=== PATIENT | female | born 1980 | race Caucasian/White ===

== ENCOUNTER → 2017-02-24 | Outpatient (CLI) | payer BC ==
[~2017-02-24] MED LIST: ACET500C12 PO; BIMA0.01 OPB; BRIM0.1S OPB; DORZ1SOL6 OPB; DOXY100C PO; INSPMPNVLG; MAGN400T6 PO; MELA1TAB5 PO; OMEG10007 PO; OXYC-57 PO; POLY335019 PO; [UNRECOGNIZED DRUG - OTHER] PO
[2017-02-24 19:54] LABS: ALT/SGPT 18 U/L (12-78); AST/SGOT 15 U/L (15-37); BLOOD UREA NITROGEN 12 mg/dl (7-18); BUN/CREATININE RATIO 13.8 (10-20); CALCIUM 8.6 mg/dl (8.5-10.1); CARBON DIOXIDE 28 mmol/L (21-32); CHLORIDE 104 mmol/L (98-107); CREATININE 0.87 mg/dl (0.60-1.20); GLUCOSE 136 mg/dl (70-99); POTASSIUM 3.6 mmol/L (3.5-5.1); SODIUM 139 mmol/L (136-145)
[2017-02-24 20:03] LABS: ALB/GLOB RATIO 1.1 (0.9-2); ALKALINE PHOSPHATASE 45 U/L (45-117); CHOLESTEROL 164 mg/dl (0-200); CHOLESTEROL/HDL RATIO 2.6; HDL CHOLESTEROL 63 mg/dl; LDL CHOLESTEROL CALCULATED 93 mg/dl; TRIGLYCERIDES 38 mg/dl (0-150); VERY LOW DENSITY LIPOPROT CALC 8 mg/dl
[2017-02-25 06:44] LABS: ESTIMATED AVERAGE GLUCOSE 177 mg/dl; HA1C FLAG Normal (Normal)
== END ==
LOC: C.LABPVFM 15:11
PROVIDERS: ATTEND Physician Assistant
DX: E10.9 Type 1 diabetes mellitus without complications (principal)

== ENCOUNTER 2017-06-23 00:46 | Emergency (ER) | payer BC ==
[~2017-06-23] VITALS: Ht 172.7 cm; Wt 78.2 kg
[~2017-06-23 00:46] MED LIST changes: -ACET500C12 PO; -BIMA0.01 OPB; -BRIM0.1S OPB; -DOXY100C PO; -MAGN400T6 PO; -OXYC-57 PO
[2017-06-23 00:50] VITALS: TEMP 36.7; Ht 172.7 cm; Wt 78.2 kg
[2017-06-23] MEDS ORDERED: SODIUM CHLORIDE 0.9% 1000ML 1,000 ML IV ONE (01:15)
[2017-06-23 01:43] LABS: HEMATOCRIT 31.1 % (37-47); MEAN CELL VOLUME 71.2 fL (80-100); MEAN CORPUSCULAR HEMOGLOBIN 22.4 pg (25-34); MEAN CORPUSCULAR HGB CONC 31.5 g/dl (32-36); MEAN PLATELET VOLUME 11.3 fL (7.4-10.4); PLATELET COUNT 182 K/uL (130-400); RED BLOOD COUNT 4.37 M/uL (4.2-5.4); URINE APPEARANCE CLEAR (CLEAR); URINE BILIRUBIN NEG (NEG); URINE COLOR YELLOW; URINE NITRITE NEG (NEG); URINE PH 6.5 (4.5-7.5); UROBILINOGEN NEG (NEG); ZZUR CULT IF INDIC CLEAN CATCH NO
[2017-06-23 01:46] LABS: MANUAL MICROSCOPIC REQUIRED? NO; REVIEW REQ? NO
[2017-06-23] MEDS ORDERED: BIMA0.01 OPB (01:47)
[2017-06-23] MEDS ORDERED: MAGN400T6 PO (01:47)
[2017-06-23] MEDS ORDERED: BRIM0.1S OPB (01:47)
[2017-06-23] MEDS ORDERED: ACET500C12 PO (01:47)
[2017-06-23 01:52] LABS: INR 0.9 (0.9-1.1); PROTHROMBIN TIME (PATIENT) 10.1 SECONDS (9.0-12.0)
[2017-06-23 02:02] LABS: ALT/SGPT 16 U/L (12-78); AST/SGOT 12 U/L (15-37); BLOOD UREA NITROGEN 21 mg/dl (7-18); BUN/CREATININE RATIO 20.7 (10-20); CALCIUM 8.1 mg/dl (8.5-10.1); CARBON DIOXIDE 20 mmol/L (21-32); CHLORIDE 110 mmol/L (98-107); GLUCOSE 322 mg/dl (70-99); POTASSIUM 3.4 mmol/L (3.5-5.1); SODIUM 137 mmol/L (136-145); URIC ACID 2.3 mg/dl (2.6-7.2)
[2017-06-23 02:04] LABS: BENZODIAZEPINE, URINE NEG (NEG); COCAINE,URINE NEG (NEG); PHENCYCLIDINE, URINE NEG (NEG)
[2017-06-23 02:05] LABS: C-REACTIVE PROTEIN < 0.29 mg/dl (0-0.29)
[2017-06-23 02:12] LABS: ALKALINE PHOSPHATASE 55 U/L (45-117); BETA-HYDROXYBUTYRATE 1.02 mg/dL (0.2-2.81)
[2017-06-23 02:29] LABS: LYME DISEASE AB IGG NEG (NEG)
[2017-06-23 02:56] LABS: BASO % 0.5 %; BASO ABS # 0.04 K/uL (0-0.2); COMPLETE YES; ECHINOCYTES 1+; EOS % 1.8 %; IG% 0.1 %; LYMPH % 15.1 %; LYMPH ABS # 1.27 K/uL (1.2-3.4); MONO % 7.4 %; NEUT % 75.1 %; TEAR DROP CELLS 1+
[2017-06-23 03:05] LABS: LYME DISEASE AB IGM EQUIVOCAL (NEG)
[2017-06-23] MEDS ORDERED: CEFTRIAXONE SOD INJ 1 GM ADDVIAL IV STA (03:22)
[2017-06-23] MEDS ORDERED: DOXY100C PO (03:40)
[2017-06-23] MEDS ORDERED: NORCO 5/325MG HOME PACK PO ONE (03:45)
[2017-06-23 04:22] VITALS: BP 108/63; PULSE 65; O2SAT 99
--- NOTE | 2017-06-23 22:20 | EMERGENCY ROOM VISIT NOTE ---
History First contact with patient: 00:53 Chief Complaint: PAIN (GENERALIZED) Stated Complaint: PAIN History of Present Illness The patient is a 37 year old female who presents to the Emergency Room with complaints of vague pains worsening over the past one day. The patient states that she is having bilateral elbow pain, right knee and right great toe pain. The patient does not recall injury or trauma. She does not have a recent fall or known injury. The patient is a usually well-controlled diabetic, but states that her sugars have been elevated over the past few days. She has not had fever or chills. No chest pain, chest tightness, shortness of breath, abdominal pain, rash, or changes in using the bathroom. She did attempt 800 mg ibuprofen at home with only minimal improvement of symptoms. She has not had symptoms like this in the past. She does not have numbness or paresthesias. She rates the discomfort a 6/10. Review of Systems More than 10 systems were reviewed and otherwise negative with the exception of history of present illness. Past Medical/Surgical History No chronic medical disease Family History No pertinent family history Social History Smoking Status: Never Smoker Current/Historical Medications Scheduled Acetazolamide (Acetazolamide Er), 500 MG PO BID Bimatoprost (Lumigan), 1 DROPS OPB DAILY Brimonidine Tartrate (Alphagan P Oph), 1 DROP OPB TID Dorzolamide Hcl-Timolol Maleat (Cosopt Oph), 1 DROPS OPB BID Doxycycline Hyclate (Vibramycin), 100 MG PO BID Fish Oil ([place]-3), 1 CAP PO DAILY Insulin Aspart (novoLOG INSULIN PUMP ), 1 EA N/A UD Magnesium Oxide (Mag-Ox), 400 MG PO HS Melatonin (Kp Melatonin), 1 TAB PO HS Polyethylene Glycol 3350 (Miralax), 17 GM PO DAILY Physical Exam Vital Signs Date Time Temp Pulse Resp B/P (MAP) Pulse Ox O2 Delivery O2 Flow Rate FiO2 06/23/17 04:22 65 18 108/63 99 06/23/17 02:27 79 17 104/46 99 Room Air 06/23/17 01:34 72 06/23/17 00:50 36.7 79 16 133/75 99 Room Air Pain Rating (0-10): 8.0 Physical Exam VITALS: Vitals are noted on the nurse's note and reviewed by myself. Vital signs stable. GENERAL: Well-developed, well-nourished, white female, who is in no acute distress and resting comfortably. Patient is cooperative with the examination. NECK: Supple without nuchal rigidity. No lymphadenopathy. No thyromegaly. Cervical spine is nontender. HEART: Regular rate and rhythm without murmurs gallops or rubs. LUNGS: Clear to auscultation bilaterally without wheezes, rales or rhonchi. No retractions or accessory muscle use. ABDOMEN: Positive normal bowel sounds x 4. Soft, nontender, without masses or organomegaly. No guarding or rebound tenderness. MUSCULOSKELETAL: No muscle atrophy, erythema, or edema noted. Full range of motion without joint tenderness in all extremities. No tenderness to palpation. Normal gait. Strength 5/5 throughout. NEURO: Patient was alert and oriented to person place and time. CN II through XII grossly intact. Deep tendon reflexes 2+ throughout. No focal neurological deficits SKIN: The skin was without rashes, erythema, edema, or bruising. Capillary reflex less than 2 seconds. Medical Decision & Procedures Laboratory Results 06/23/17 01:25 Red Blood Count 4.37, Mean Corpuscular Volume 71.2, Mean Corpuscular Hemoglobin 22.4, Mean Corpuscular Hemoglobin Concent 31.5, Mean Platelet Volume 11.3, Neutrophils (%) (Auto) 75.1, Lymphocytes (%) (Auto) 15.1, Monocytes (%) (Auto) 7.4, Eosinophils (%) (Auto) 1.8, Basophils (%) (Auto) 0.5, Neutrophils # (Auto) 6.31, Lymphocytes # (Auto) 1.27, Monocytes # (Auto) 0.62, Eosinophils # (Auto) 0.15, Basophils # (Auto) 0.04 06/23/17 01:25 Test 06/23/17 01:07 06/23/17 01:25 Urine Test NEG (NEG) White Blood Count 8.40 K/uL (4.8-10.8) Red Blood Count 4.37 M/uL (4.2-5.4) Hemoglobin 9.8 g/dL (12.0-16.0) Hematocrit 31.1 % (37-47) Mean Corpuscular Volume 71.2 fL (80-100) Mean Corpuscular Hemoglobin 22.4 pg (25-34) Mean Corpuscular Hemoglobin Concent 31.5 g/dl (32-36) Platelet Count 182 K/uL (130-400) Mean Platelet Volume 11.3 fL (7.4-10.4) Neutrophils (%) (Auto) 75.1 % Lymphocytes (%) (Auto) 15.1 % Monocytes (%) (Auto) 7.4 % Eosinophils (%) (Auto) 1.8 % Basophils (%) (Auto) 0.5 % Neutrophils # (Auto) 6.31 K/uL (1.4-6.5) Lymphocytes # (Auto) 1.27 K/uL (1.2-3.4) Monocytes # (Auto) 0.62 K/uL (0.11-0.59) Eosinophils # (Auto) 0.15 K/uL (0-0.5) Basophils # (Auto) 0.04 K/uL (0-0.2) RDW Standard Deviation 42.9 fL (36.4-46.3) RDW Coefficient of Variation 16.7 % (11.5-14.5) Immature Granulocyte % (Auto) 0.1 % Immature Granulocyte # (Auto) 0.01 K/uL (0.00-0.02) Tear Drop Cells 1+ Echinocytes 1+ Erythrocyte Sedimentation Rate 19 mm/hr (0-21) Prothrombin Time 10.1 SECONDS (9.0-12.0) Prothromb Time International Ratio 0.9 (0.9-1.1) Activated Partial Thromboplast Time 26.3 SECONDS (21.0-31.0) Partial Thromboplastin Ratio 1.0 Urine Color YELLOW Urine Appearance CLEAR (CLEAR) Urine pH 6.5 (4.5-7.5) Urine Specific [place] 1.020 (1.000-1.030) Urine Protein NEG (NEG) Urine Glucose (UA) 2+ (NEG) Urine Ketones NEG (NEG) Urine Occult Blood NEG (NEG) Urine Nitrite NEG (NEG) Urine Bilirubin NEG (NEG) Urine Urobilinogen NEG (NEG) Urine Leukocyte Esterase NEG (NEG) Anion Gap 7.0 mmol/L (3-11) Est Creatinine Clear Calc Drug Dose 83.0 ml/min Estimated GFR () 82.2 Estimated GFR (Non- 70.9 BUN/Creatinine Ratio 20.7 (10-20) Uric Acid 2.3 mg/dl (2.6-7.2) Calcium Level 8.1 mg/dl (8.5-10.1) Magnesium Level 2.0 mg/dl (1.8-2.4) Total Bilirubin 0.2 mg/dl (0.2-1) Aspartate Amino Transf (AST/SGOT) 12 U/L (15-37) Alanine Aminotransferase (ALT/SGPT) 16 U/L (12-78) Alkaline Phosphatase 55 U/L (45-117) C-Reactive Protein < 0.29 mg/dl (0-0.29) Total Protein 7.1 gm/dl (6.4-8.2) Albumin 3.5 gm/dl (3.4-5.0) Globulin 3.6 gm/dl (2.5-4.0) Albumin/Globulin Ratio 1.0 (0.9-2) Lipase 173 U/L (73-393) Beta-Hydroxybutyric Acid 1.02 mg/dL (0.2-2.81) Thyroid Stimulating Hormone (TSH) 7.020 uIu/ml (0.300-4.500) Urine Opiates Screen NEG (NEG) Urine Methadone, Qualitative NEG (NEG) Urine Barbiturates NEG (NEG) Urine Phencyclidine (PCP) Level NEG (NEG) Ur Amphetamine/Methamphetamine NEG (NEG) MDMA (Ecstasy) Screen NEG (NEG) Urine Benzodiazepines Screen NEG (NEG) Urine Cocaine Metabolite NEG (NEG) Urine Marijuana (THC) NEG (NEG) Lyme Disease IgG Antibody NEG (NEG) Medications Administered Medications (Trade) Dose Ordered Sig/Ro Route Start Time Stop Time Status Last Admin Dose Admin Sodium Chloride 1,000 ml @ 999 mls/hr Q1H1M ONCE IV 06/23/17 01:15 06/23/17 02:15 DC 06/23/17 01:32 999 MLS/HR Ceftriaxone Sodium (Rocephin Inj) 1 gm NOW STAT IV 06/23/17 03:22 06/23/17 03:23 DC 06/23/17 03:43 1 GM Acetaminophen/ Hydrocodone Bitart ([place] 5/325mg Home Pack) 1 homepack UD ONCE PO 06/23/17 03:45 06/23/17 03:46 DC 06/23/17 04:21 1 HOMEPACK ED Course Physical exam and history were performed. Nursing notes, EMR, and Medication List were personally reviewed. Patient appears to have vague pains throughout her bilateral arms and right lower leg. On examination she does not have signs of infection, rash, or any appreciable weakness. She certainly is without numbness or paresthesias. She is diabetic, and states her sugars have been running high. Overall the patient appears well and is certainly nontoxic. She is reasonable and does not usually come to the emergency department. IV access was established and labs were obtained. The patient was hydrated with normal saline. The patient's blood work is as above and was reviewed. She does not have a significantly elevated white blood cell count or bandemia. She is anemic at 9.8. TSH is slightly elevated at 7. Her Lyme IgM is positive with Western blot pending. Her sugar is elevated but her ketones are normal. I discussed options of care with the patient. Her symptoms are most likely felt to be related to the Lyme disease as this is positive and could reasonably cause her symptoms. She does not seem to have obvious symptoms of Guillain-Perez , infection, or obvious diabetic neuropathy. The patient will be given Rocephin here in the department and a continuation course of doxycycline. I did recommend that she have close follow-up with her primary care physician. 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 The anemia could be iron deficient related, and I did recommend that she follow with this through her PCPs office as well. The patient was asked to monitor for worsening symptoms over the next year with any new, worsening, or concerning symptoms. The chart was completed utilizing [employer] Speech Voice Recognition Software. Grammatical errors, random word insertions, pronoun errors, and incomplete sentences are an occasional consequence of this system due to software limitations, ambient noise, and hardware issues. Any formal questions or concerns about the content, text, or information contained within the body of this dictation should be directly addressed to the provider for clarification. . Medical Decision Differential diagnosis includes, but is not limited to: Sprain, strain, fracture , dislocation, subluxation, contusion, neuropathy, infection, systemic inflammatory process, Lyme disease, and others Impression Primary Impression: Positive Lyme disease serology Additional Impression: Arthralgia Departure Information Dispostion Home / Self-Care Condition GOOD Prescriptions Doxycycline Hyclate (VIBRAMYCIN) 100 Mg Cap 100 MG PO BID for 21 Days, #42 CAP Prov: Dav Horowitz PA-C 06/23/17 Forms WORK / SCHOOL INSTRUCTIONS, HOME CARE DOCUMENTATION FORM, IMPORTANT VISIT INFORMATION Patient Instructions My [facility] Additional Instructions You were seen and evaluated today on an emergency basis only. This is not a substitute for, or an effort to provide, complete comprehensive medical care. It is not possible to recognize and treat all injuries or illnesses in a single emergency department visit. For this reason it is recommended that you followup with your primary care physician next week for ongoing care and evaluation. Call in the morning to make her appointment. For baseline pain relief you may alternate ibuprofen and acetaminophen every 4 hours for pain control. Take 600 mg ibuprofen (Advil) and then 4 hours later take 1000 mg acetaminophen (Tylenol). Do not take more than 3000 mg acetaminophen in a single day. [place] (hydrocodone/acetaminophen) 5/325 mg (homepack) every 6 hours as needed for worsening breakthrough pain. Do not drink or drive on [place]. This medication will likely make you tired. Do not take [place] and Tylenol at the same time as both contain acetaminophen. [place] may cause constipation. You may wish to take an [id number] stool softener like Colace if this occurs. Doxycycline twice a day for 21 days. Avoid exposure to the sun/UV light while on this medication or use frequent application of SPF 50 or higher due to increased sensitivity to UV rays and high risk for severe cooney. TAKE WITH FOOD You are welcome to return to the emergency department anytime with new, worsening, or concerning symptoms. Problem Qualifiers
[2017-06-29 01:40] LABS: 18KDIGG BAND NONREACTIVE (NONREACTIVE); 23KDIGG BAND REACTIVE (NONREACTIVE); 23KDIGM BAND REACTIVE (NONREACTIVE); 28KDIGG BAND NONREACTIVE (NONREACTIVE); 30KDIGG BAND NONREACTIVE (NONREACTIVE); 39KDIGG BAND NONREACTIVE (NONREACTIVE); 39KDIGM BAND REACTIVE (NONREACTIVE); 41KDIGG BAND NONREACTIVE (NONREACTIVE); 41KDIGM BAND REACTIVE (NONREACTIVE); 45KDIGG BAND NONREACTIVE (NONREACTIVE); 58KDIGG BAND NONREACTIVE (NONREACTIVE); 66KDIGG BAND NONREACTIVE (NONREACTIVE); 93KDIGG BAND NONREACTIVE (NONREACTIVE)
== END 2017-06-23 04:22 | disposition home or self-care (01) ==
LOC: C.EDB 00:47
DX: M25.521 Pain in right elbow (principal); M25.522 Pain in left elbow; R82.79 Other abnormal findings on microbiological examination of urine; E11.9 Type 2 diabetes mellitus without complications; Z79.4 Long term (current) use of insulin; Z79.899 Other long term (current) drug therapy

== ENCOUNTER → 2017-08-02 | Outpatient (CLI) | payer BC ==
[~2017-08-02] MED LIST changes: +ACET500C12 PO; +BIMA0.01 OPB; +BRIM0.1S OPB; +MAGN400T6 PO; -[UNRECOGNIZED DRUG - OTHER] PO
[2017-08-02 17:35] LABS: BASO % 0.7 %; BASO ABS # 0.05 K/uL (0-0.2); EOS % 1.4 %; HEMATOCRIT 34.7 % (37-47); IG% 0.1 %; LYMPH ABS # 2.23 K/uL (1.2-3.4); MEAN CELL VOLUME 72.9 fL (80-100); MEAN CORPUSCULAR HEMOGLOBIN 21.6 pg (25-34); MEAN CORPUSCULAR HGB CONC 29.7 g/dl (32-36); MEAN PLATELET VOLUME 11.4 fL (7.4-10.4); MONO % 5.7 %; NEUT % 63.1 %; PLATELET COUNT 252 K/uL (130-400); RED BLOOD COUNT 4.76 M/uL (4.2-5.4); WHITE BLOOD COUNT 7.69 K/uL (4.8-10.8)
[2017-08-02 17:48] LABS: BLOOD UREA NITROGEN 14 mg/dl (7-18); BUN/CREATININE RATIO 16.7 (10-20); CALCIUM 8.8 mg/dl (8.5-10.1); CARBON DIOXIDE 23 mmol/L (21-32); CHLORIDE 106 mmol/L (98-107); CREATININE 0.81 mg/dl (0.60-1.20); GLUCOSE 186 mg/dl (70-99); POTASSIUM 3.2 mmol/L (3.5-5.1); SODIUM 136 mmol/L (136-145)
[2017-08-02 17:52] LABS: FERRITIN 4.3 ng/ml (8.0-388.0)
[2017-08-02 17:59] LABS: THYROID STIMULATING HORMONE 0.89 uIu/ml (0.300-4.500)
[2017-08-02 19:36] LABS: COMPLETE YES; SPHEROCYTE 1+
[2017-08-03 07:05] LABS: ESTIMATED AVERAGE GLUCOSE 200 mg/dl; HA1C FLAG Normal (Normal)
== END | disposition home or self-care (01) ==
LOC: C.LABPVFM 15:23
PROVIDERS: ATTEND Nurse Practitioner Family
DX: Z01.818 Encounter for other preprocedural examination (principal); D64.9 Anemia, unspecified; E03.9 Hypothyroidism, unspecified

== ENCOUNTER → 2017-08-07 | Outpatient (CLI) | payer BC | END | disposition home or self-care (01) | LOC: C.LABPVFM 08:35 | PROVIDERS: ATTEND Nurse Practitioner Family | DX: E87.6 Hypokalemia (principal) ==

== ENCOUNTER → 2017-10-14 | Outpatient (CLI) | payer BC ==
[2017-10-14 17:37] LABS: BASO % 0.6 %; BASO ABS # 0.05 K/uL (0-0.2); HEMATOCRIT 35.7 % (37-47); IG# 0.02 K/uL (0.00-0.02); LYMPH % 6.7 %; LYMPH ABS # 0.57 K/uL (1.2-3.4); MEAN CELL VOLUME 73.9 fL (80-100); MEAN CORPUSCULAR HEMOGLOBIN 22.8 pg (25-34); MEAN CORPUSCULAR HGB CONC 30.8 g/dl (32-36); MEAN PLATELET VOLUME 11.4 fL (7.4-10.4); MONO % 6.9 %; MONO ABS # 0.59 K/uL (0.11-0.59); NEUT % 85.6 %; NEUT ABS # 7.28 K/uL (1.4-6.5); PLATELET COUNT 202 K/uL (130-400); RED CELL DISTRIBUTION WIDTH CV 17.8 % (11.5-14.5); RED CELL DISTRIBUTION WIDTH SD 48.6 fL (36.4-46.3); WHITE BLOOD COUNT 8.51 K/uL (4.8-10.8)
[2017-10-14 19:27] LABS: BLOOD UREA NITROGEN 12 mg/dl (7-18); CALCIUM 8.9 mg/dl (8.5-10.1); CARBON DIOXIDE 26 mmol/L (21-32); CREATININE 0.97 mg/dl (0.60-1.20); GLUCOSE 252 mg/dl (70-99); POTASSIUM 3.5 mmol/L (3.5-5.1); SODIUM 130 mmol/L (136-145)
== END | disposition home or self-care (01) ==
LOC: C.LABPVFM 14:49
PROVIDERS: ATTEND Nurse Practitioner
DX: E87.6 Hypokalemia (principal); D50.9 Iron deficiency anemia, unspecified

== ENCOUNTER → 2017-11-23 | Outpatient (CLI) | payer BC | END | disposition home or self-care (01) | LOC: C.LABPVFM 15:53 | PROVIDERS: ATTEND Physician Assistant | DX: E03.9 Hypothyroidism, unspecified (principal) ==

== ENCOUNTER → 2018-04-28 | Outpatient (CLI) | payer BC ==
[2018-04-28 17:26] LABS: BASO ABS # 0.06 K/uL (0-0.2); EOS ABS # 0.06 K/uL (0-0.5); HEMATOCRIT 31.9 % (37-47); HEMOGLOBIN 9.7 g/dL (12.0-16.0); LYMPH % 24.9 %; MEAN CORPUSCULAR HGB CONC 30.4 g/dl (32-36); MEAN PLATELET VOLUME 11.8 fL (7.4-10.4); MONO % 5.5 %; MONO ABS # 0.33 K/uL (0.11-0.59); NEUT % 67.6 %; NEUT ABS # 4.07 K/uL (1.4-6.5); PLATELET COUNT 251 K/uL (130-400); RED CELL DISTRIBUTION WIDTH CV 16.6 % (11.5-14.5); WHITE BLOOD COUNT 6.02 K/uL (4.8-10.8)
== END | disposition home or self-care (01) ==
LOC: C.LABPVFM 13:00
PROVIDERS: ATTEND Nurse Practitioner
DX: E87.6 Hypokalemia (principal); D64.9 Anemia, unspecified

== ENCOUNTER → 2018-05-05 | Outpatient (CLI) | payer BC ==
[2018-05-05 13:20] LABS: HEMATOCRIT 35.8 % (37-47); HEMOGLOBIN 10.5 g/dL (12.0-16.0); HEMOGLOBIN A1C 8.5 % (4.5-5.6); MEAN CELL VOLUME 69.6 fL (80-100); MEAN CORPUSCULAR HEMOGLOBIN 20.4 pg (25-34); MEAN CORPUSCULAR HGB CONC 29.3 g/dl (32-36); PLATELET COUNT 277 K/uL (130-400); RED CELL DISTRIBUTION WIDTH CV 16.7 % (11.5-14.5); RED CELL DISTRIBUTION WIDTH SD 42.1 fL (36.4-46.3); WHITE BLOOD COUNT 5.16 K/uL (4.8-10.8)
[2018-05-05 13:21] LABS: BASO % 1.6 %; BASO ABS # 0.08 K/uL (0-0.2); EOS % 3.1 %; EOS ABS # 0.16 K/uL (0-0.5); LYMPH % 29.3 %; LYMPH ABS # 1.51 K/uL (1.2-3.4); MONO % 8.3 %; MONO ABS # 0.43 K/uL (0.11-0.59); NEUT % 57.7 %; NEUT ABS # 2.98 K/uL (1.4-6.5)
[2018-05-05 13:22] LABS: BLOOD UREA NITROGEN 7 mg/dl (7-18); CALCIUM 8.8 mg/dl (8.5-10.1); CARBON DIOXIDE 27 mmol/L (21-32); CHOLESTEROL 173 mg/dl (0-200); CREATININE 0.97 mg/dl (0.60-1.20); GLUCOSE 171 mg/dl (70-99); LDL CHOLESTEROL CALCULATED 98 mg/dl; POTASSIUM 4.1 mmol/L (3.5-5.1); SODIUM 135 mmol/L (136-145)
== END | disposition home or self-care (01) ==
LOC: C.LABPVFM 09:23
PROVIDERS: ATTEND Nurse Practitioner
DX: D64.9 Anemia, unspecified (principal); E10.9 Type 1 diabetes mellitus without complications; E03.9 Hypothyroidism, unspecified; E55.9 Vitamin D deficiency, unspecified